=== PATIENT | male | born 1960 | race Caucasian/White ===

== ENCOUNTER → 2020-08-21 | Outpatient (CLI) | payer OTHER | END | disposition home or self-care (01) | LOC: OIH 12:33 | PROVIDERS: ATTEND Internal Medicine Cardiovascular Disease | DX: Z13.6 Encounter for screening for cardiovascular disorders (principal) | CPT/HCPCS: 75571 ==

== ENCOUNTER 2021-03-03 08:47 | Emergency (ER) | payer BC, OTHER ==
[~2021-03-03] VITALS: Ht 188 cm; Wt 95.3 kg
[2021-03-03] MEDS ORDERED: MORPHINE 4 MG SYG IM SCH (10:00)
[2021-03-03 10:23] VITALS: BP 153/77
== END 2021-03-03 11:37 | disposition home or self-care (01) ==
LOC: EDH 08:47
DX: S52.571A Other intraarticular fracture of lower end of right radius, initial encounter for closed fracture (principal); S00.83XA Contusion of other part of head, initial encounter; S80.212A Abrasion, left knee, initial encounter; S60.512A Abrasion of left hand, initial encounter; X58.XXXA Exposure to other specified factors, initial encounter; Y93.89 Activity, other specified; Y92.89 Other specified places as the place of occurrence of the external cause; Y99.8 Other external cause status
CPT/HCPCS: 29125; 73110; 96372; 99284; J2270